=== PATIENT | female | born 1985 | race Native Hawaiian/Other Pacific Islander ===

== ENCOUNTER 2019-04-13 11:03 | Emergency (ER) | payer OTHER ==
[2019-04-13 11:17] VITALS: RESP 18; TEMP 98.2
[2019-04-13 12:12] LABS: Appearance,Urine Clear (Clear); Bilirubin,Urine Negative (Negative); Blood,Urine Negative (Negative); Color,Urine Yellow; Glucose,Urine (UA) Negative (Negative); Ketones,Urine Negative (Negative); Leukocyte Esterase,Urine Negative (Negative); Nitrite,Urine Negative (Negative); Protein,Urine Negative (Negative); Specific Gravity,Urine 1.018 (1.001-1.035); Urobilinogen,Urine <2.0 mg/dL (<2.0)
--- NOTE | 2019-04-13 12:43 | ED ---
Female Urogenital HPI - General Chief complaint: Abdominal Pain Stated complaint: Lower abd pain/pressure Time Seen by Provider: 04/13/19 11:25 Source: patient, RN notes reviewed, old records reviewed Mode of arrival: ambulatory Limitations: no limitations - History of Present Illness Initial comments: This is a 33-year-old female today. This patient resents today for evaluation regards to some pelvic pain right lower quadrant pelvic pain. Patient recently did pass a significant blood clot and she is having cramping like her normal periods. Patient not on control. Has no significant medical history takes no current medications. No recent travel history or sick contacts. No diarrheal issues no burning with urination. Patient is sexually active one partner. No vaginal discharge and no current bleeding. Patient is had some episodic headaches over the last 3 days but nothing significant. Mild nausea no vomiting. No fevers. Patient is eating and drinking appropriately, not anorexic MD Complaint: vaginal bleeding (One episode of vaginal bleeding past clot), pelvic pain (Right lower quadrant cramping) -: days(s) (4) Location: suprapubic, RLQ Radiation: non-radiating Severity: mild Severity scale (1-10): 2 Quality: cramping Consistency: intermittent Improves with: none Worsens with: none Patient : No Associated Symptoms: vaginal bleeding, abdominal pain - Related Data Sexually active: Yes Home Medications Medication Instructions Recorded Confirmed No Known Home Medications 04/13/19 04/13/19 Allergies Allergy/AdvReac Type Severity Reaction Status Date / Time No Known Allergies Allergy Verified 04/13/19 11:57 Review of Systems ROS Statement: Those systems with pertinent positive or pertinent negative responses have been documented in the HPI. ROS Other: All systems not noted in ROS Statement are negative. Past Medical History Past Medical History: Asthma, Rheumatoid Arthritis (RA) Additional Past Medical History / Comment(s): arthritis History of Any Multi-Drug Resistant Organisms: None Reported Past Surgical History: No Surgical Hx Reported Past Psychological History: Anxiety Smoking Status: Never smoker Past Alcohol Use History: Occasional Past Drug Use History: Marijuana General Exam Limitations: no limitations General appearance: alert, in no apparent distress Head exam: Present: atraumatic, normocephalic, normal inspection Eye exam: Present: normal appearance, PERRL, EOMI. Absent: scleral icterus, conjunctival injection, periorbital swelling ENT exam: Present: normal exam, mucous membranes moist Neck exam: Present: normal inspection. Absent: tenderness, meningismus, lymphadenopathy Respiratory exam: Present: normal lung sounds bilaterally. Absent: respiratory distress, wheezes, rales, rhonchi, stridor Cardiovascular Exam: Present: regular rate, normal rhythm, normal heart sounds. Absent: systolic murmur, diastolic murmur, rubs, gallop, clicks GI/Abdominal exam: Present: soft, tenderness (Right lower quadrant), normal bowel sounds. Absent: distended, guarding, rebound, rigid Extremities exam: Present: normal inspection, full ROM, normal capillary refill. Absent: tenderness, pedal edema, joint swelling, calf tenderness Back exam: Present: normal inspection Neurological exam: Present: alert, oriented X3, CN II-XII intact Psychiatric exam: Present: normal affect, normal mood Skin exam: Present: warm, dry, intact, normal color. Absent: rash Course Vital Signs 04/13/19 11:13 Temperature 98.2 F Pulse Rate 83 Respiratory 18 Rate Blood Pressure 127/82 O2 Sat by Pulse 99 Oximetry - Reevaluation(s) Reevaluation #1: 04/13/19 12:43 Medical record is reviewed Reevaluation #2: 04/13/19 12:43 Patient not informed of not being currently. Patient also states she took 3 at home test which were negative Reevaluation #3: 04/13/19 12:43 Patient not requiring pain management Medical Decision Making - Medical Decision Making He 3 female the ER for evaluation of right lower quadrant right suprapubic abdominal pain. Suprapubic pain. Pelvic pain. Patient has infrequent the pelvis likely ovarian cyst rupture. No fever or anorexia to more concern for appendicitis. Patient can be discharged home to return if symptoms worsen - Lab Data Lab Results 04/13/19 04/13/19 Range/Units 11:30 11:30 Urine Color Yellow Urine Appearance Clear (Clear) Urine pH 7.0 (5.0-8.0) Ur Specific [place] 1.018 (1.001-1.035) Urine Protein Negative (Negative) Urine Glucose (UA) Negative (Negative) Urine Ketones Negative (Negative) Urine Blood Negative (Negative) Urine Nitrite Negative (Negative) Urine Bilirubin Negative (Negative) Urine Urobilinogen <2.0 (<2.0) mg/dL Ur Leukocyte Esterase Negative (Negative) Urine HCG, Qual Not Detected (Not Detectd) - Radiology Data Radiology results: report reviewed (US pelvis does show some free fluid likely ovarian cyst rupture), image reviewed Disposition Clinical Impression: Ovarian cyst, Ovarian cyst rupture Disposition: HOME SELF-CARE Condition: Good Instructions (If sedation given, give patient instructions): Ruptured Ovarian Cyst (ED), Ovarian Cyst (ED) Is patient prescribed a controlled substance at d/c from ED?: No Referrals: None,Stated [Primary Care Provider] - 1-2 days
--- NOTE | 2019-04-13 13:49 | US ---
EXAMINATION TYPE: US transvaginal plus Dopplers DATE OF EXAM: 04/13/2019 COMPARISON: NONE CLINICAL HISTORY: 33-year-old female with Pelvic pain TECHNIQUE: Transvaginal (TV). Color Doppler and spectral waveform analysis of the ovarian arteries and veins. Date of LMP: 03/03/19 FINDINGS: EXAM MEASUREMENTS: Uterus: Anteverted measuring 5.3 x 2.8 x 3.8 cm Endometrial Stripe: 0.2 cm Right Ovary: 2.1 x 1.3 x 2.1 cm Left Ovary: unable to visualize 1. Uterus: Anteverted 2. Endometrium: appears wnl 3. Right Ovary: follicles noted 4. Left Ovary: Obscured by overlying bowel gas Spectral, color and waveform doppler imaging shows good arterial and venous flow within the right o vary; there is no evidence for ovarian torsion. 5. Bilateral Adnexa: Mild to moderate free fluid noted right adnexa 6. Posterior cul-de-sac: appears wnl IMPRESSION: 1. No sonographic evidence for right ovarian torsion. The left ovary could not be visualized for asse ssment. 2. Mild to moderate right adnexal free fluid adjacent to the ovary.
[2019-04-13 14:27] VITALS: BP 120/77; PULSE 75
== END 2019-04-13 14:27 | disposition home or self-care (01) ==
LOC: EC 11:03
DX: N83.209 Unspecified ovarian cyst, unspecified side (principal); R51 Headache; R11.0 Nausea; N93.9 Abnormal uterine and vaginal bleeding, unspecified
CPT/HCPCS: 76830; 81003; 81025; 87086; 93976; 99284

== ENCOUNTER 2019-09-23 22:46 | Emergency (ER) | payer OTHER ==
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
--- NOTE | 2019-09-23 23:32 | XR ---
EXAMINATION TYPE: XR cervical spine comp DATE OF EXAM: 09/23/2019 COMPARISON: NONE HISTORY: Neck pain TECHNIQUE: 5 views FINDINGS: There is some straightening of the vertebra and slight kyphotic curvature at C4-5 level. Po sterior elements are intact. The neural foramina are widely patent. Atlantoaxial facet joint is ar l. There are no cervical ribs. IMPRESSION: Mild straightening of the vertebra that could relate to spasm. No fracture seen.
[2019-09-24 00:07] VITALS: BP 135/86; PULSE 97; RESP 17; TEMP 97.7
== END 2019-09-24 00:06 | disposition home or self-care (01) ==
LOC: EC 22:46
DX: S16.1XXA Strain of muscle, fascia and tendon at neck level, initial encounter (principal); V49.9XXA Car occupant (driver) (passenger) injured in unspecified traffic accident, initial encounter; Y92.410 Unspecified street and highway as the place of occurrence of the external cause
CPT/HCPCS: 72050; 99284

== ENCOUNTER 2021-03-12 21:56 | Emergency (ER) | payer BC, OTHER ==
[2021-03-12 22:19] VITALS: TEMP 98.7
[2021-03-12] MEDS ORDERED: AMOXIC-POT CLAV 875-125MG 1 EACH TAB PO STA (22:55)
[2021-03-12] MEDS ORDERED: ACETAMINOPHEN TAB 500 MG TAB PO STA (22:55)
[2021-03-12] MEDS ORDERED: LORATADINE-PSEUDOEPH 5-120 MG 1 EACH TAB.ER.12H PO STA (22:55)
[2021-03-12] MEDS ORDERED: IBUPROFEN 800 MG TAB PO STA (22:55)
--- NOTE | 2021-03-12 23:04 | ED ---
Headache HPI - General Chief Complaint: Headache Stated Complaint: Head pain Time Seen by Provider: 03/12/21 22:29 Source: RN notes reviewed, old records reviewed Mode of arrival: ambulatory Limitations: no limitations - History of Present Illness Initial Comments: This is a 35-year-old female to the ER for evaluation. Patient presents today for evaluation regards to sinus sinus infection sinus headache. Patient denying any fevers with that she was forced to leave work secondary to her headache. Otherwise no complaints no travel history no sick contacts patient has no significant medical history. Does get recurrent sinus infections MD Complaint: headache, other (Sinus headache) -: days(s) Onset Description: gradual Location: frontal Severity: mild Severity scale (1-10): 2 Quality: aching, full Consistency: intermittent Improves With: nothing Worsens With: none Context: recent URI Associated Symptoms: other (none) Other Symptoms: other (none) Treatments Prior to Arrival: none - Related Data Previous Rx's Medication Instructions Recorded Ibuprofen [Motrin] 600 mg PO Q8HR PRN #20 tab 09/23/19 Amoxic-Pot Clav 875-125Mg 1 tab PO Q12HR #20 tablet 03/12/21 [Augmentin 875-125] Allergies Allergy/AdvReac Type Severity Reaction Status Date / Time No Known Allergies Allergy Verified 03/12/21 22:19 Review of Systems ROS Statement: Those systems with pertinent positive or pertinent negative responses have been documented in the HPI. ROS Other: All systems not noted in ROS Statement are negative. Past Medical History Past Medical History: Asthma, Rheumatoid Arthritis (RA) Additional Past Medical History / Comment(s): arthritis History of Any Multi-Drug Resistant Organisms: None Reported Past Surgical History: No Surgical Hx Reported Past Psychological History: Anxiety Smoking Status: Never smoker Past Alcohol Use History: Occasional Past Drug Use History: Marijuana General Exam Limitations: no limitations General appearance: alert, in no apparent distress Head exam: Present: atraumatic, normocephalic, normal inspection Eye exam: Present: normal appearance, PERRL, EOMI. Absent: scleral icterus, conjunctival injection, periorbital swelling ENT exam: Present: normal exam, mucous membranes moist Neck exam: Present: normal inspection. Absent: tenderness, meningismus, lymphadenopathy Respiratory exam: Present: normal lung sounds bilaterally. Absent: respiratory distress, wheezes, rales, rhonchi, stridor Cardiovascular Exam: Present: regular rate, normal rhythm, normal heart sounds. Absent: systolic murmur, diastolic murmur, rubs, gallop, clicks GI/Abdominal exam: Present: soft, normal bowel sounds. Absent: distended, tenderness, guarding, rebound, rigid Extremities exam: Present: normal inspection, full ROM, normal capillary refill. Absent: tenderness, pedal edema, joint swelling, calf tenderness Back exam: Present: normal inspection Neurological exam: Present: alert, oriented X3, CN II-XII intact Psychiatric exam: Present: normal affect, normal mood Skin exam: Present: warm, dry, intact, normal color. Absent: rash Course Vital Signs 03/12/21 03/12/21 22:15 23:23 Temperature 98.7 F 98.7 F Pulse Rate 85 84 Respiratory 17 18 Rate Blood Pressure 123/85 121/84 O2 Sat by Pulse 100 100 Oximetry - Reevaluation(s) Reevaluation #1: 03/13/21 Medical record is reviewed Reevaluation #2: 03/13/21 Patient informed of results, questions answered Patient asking for work note Medical Decision Making - Medical Decision Making 35 female to the ER for evaluation. Patient is here for treatment of sinus infection, sinus headache. Patient symptoms improved and can be discharged home Disposition Clinical Impression: Headache Disposition: HOME SELF-CARE Condition: Good Instructions (If sedation given, give patient instructions): Acute Headache (ED) Prescriptions: Amoxic-Pot Clav 875-125Mg [Augmentin 875-125] 1 tab PO Q12HR #20 tablet Is patient prescribed a controlled substance at d/c from ED?: No Referrals: Chilango Sandoval MD [Primary Care Provider] - 1-2 days
[2021-03-12 23:27] VITALS: BP 121/84; PULSE 84; RESP 18
== END 2021-03-12 23:23 | disposition home or self-care (01) ==
LOC: EC 21:56
DX: R51.9 Headache, unspecified (principal); J45.909 Unspecified asthma, uncomplicated; M06.9 Rheumatoid arthritis, unspecified; F41.9 Anxiety disorder, unspecified; F12.90 Cannabis use, unspecified, uncomplicated
CPT/HCPCS: 99283

== ENCOUNTER → 2021-12-10 | Outpatient (CLI) | payer BC ==
--- NOTE | 2021-12-10 09:19 | XR ---
EXAMINATION TYPE: XR finger RT DATE OF EXAM: 12/10/2021 COMPARISON: NONE HISTORY: Thumb pain after recent injury. TECHNIQUE: 3 views right thumb. FINDINGS: No acute displaced fracture is seen. Joint spaces are maintained in the right thumb. [place] ing soft tissue is unremarkable. IMPRESSION: As above.
== END | disposition home or self-care (01) ==
LOC: RADXRMAIN 08:08
PROVIDERS: ATTEND Family Medicine
DX: S69.91XA Unspecified injury of right wrist, hand and finger(s), initial encounter (principal); M79.644 Pain in right finger(s); X58.XXXA Exposure to other specified factors, initial encounter

== ENCOUNTER 2022-01-12 20:49 | Emergency (ER) | payer BC ==
[2022-01-12 21:24] VITALS: BP 122/78; PULSE 91; RESP 16; TEMP 98.1
--- NOTE | 2022-01-12 21:32 | ED ---
Upper Extremity HPI - General Chief Complaint: Extremity Injury, Upper Stated Complaint: R hand finger injury Time Seen by Provider: 01/12/22 21:27 Source: patient, RN notes reviewed Mode of arrival: ambulatory Limitations: no limitations - History of Present Illness Initial Comments: Patient states she was doing some gardening when her was cutting a tree branch. The treatment came down and struck her on the left thumb. Complaining of pain at the IP joint which radiates proximally when she moves the thumb. Pain is sharp. It by rest. No other injuries. No distal paresthesias. No headache, no fever or chills, no changes in vision or hearing, no sore throat or difficulty with speech, no neck pain, no chest pain or shortness of breath, no abdominal pain, no nausea or vomiting, no changes in urination or bowel movements, no numbness or tingling, no skin rashes or lesions. - Related Data Previous Rx's Medication Instructions Recorded Ibuprofen [Motrin] 600 mg PO Q8HR PRN #20 tab 09/23/19 Amoxic-Pot Clav 875-125Mg 1 tab PO Q12HR #20 tablet 03/12/21 [Augmentin 875-125] Allergies Allergy/AdvReac Type Severity Reaction Status Date / Time No Known Allergies Allergy Verified 03/12/21 22:19 Review of Systems ROS Statement: Those systems with pertinent positive or pertinent negative responses have been documented in the HPI. ROS Other: All systems not noted in ROS Statement are negative. Past Medical History Past Medical History: Asthma, Rheumatoid Arthritis (RA) Additional Past Medical History / Comment(s): arthritis History of Any Multi-Drug Resistant Organisms: None Reported Past Surgical History: No Surgical Hx Reported Past Psychological History: Anxiety Smoking Status: Never smoker Past Alcohol Use History: Occasional Past Drug Use History: Marijuana General Exam Limitations: no limitations General appearance: alert, in no apparent distress Head exam: Present: atraumatic, normocephalic, normal inspection Eye exam: Present: normal appearance, EOMI Neck exam: Present: normal inspection, full ROM Respiratory exam: Present: normal lung sounds bilaterally. Absent: respiratory distress, wheezes, rales, rhonchi, stridor Cardiovascular Exam: Present: regular rate, normal rhythm, normal heart sounds. Absent: systolic murmur, diastolic murmur, rubs, gallop, clicks Left Forearm Wrist exam: Present: normal inspection, full ROM. Absent: tenderness, swelling, abrasion, laceration, ecchymosis, deformity, crepitus, dislocation, erythema, tenderness over anatomical snuff box, pain with axial thumb loading Hand Wrist exam: Present: full ROM, tenderness (Patient has tenderness at the area of the IP joint. A lesser extent the MCP joint.). Absent: swelling, abras ion, deformity, crepitus, dislocation, erythema, amputation, nail avulsion, subungual hematoma Neuro motor exam: Present: wrist extension intact, thumb opposition intact, thum b IP flexion intact, thumb adduction intact, fingers 2-5 abduction intact Neurosensory exam: Present: radial nerve intact, ulnar nerve intact, median nerve intact Vascular: Present: normal capillary refill. Absent: vascular compromise, Pallo, pulse deficit radial art, pulse deficit ulnar art Back exam: Present: normal inspection Neurological exam: Present: alert, oriented X3, CN II-XII intact, normal gait. Absent: motor sensory deficit Psychiatric exam: Present: normal affect, normal mood Skin exam: Present: warm, dry, intact, normal color. Absent: rash Course Vital Signs 01/12/22 21:21 Temperature 98.1 F Pulse Rate 91 Respiratory 16 Rate Blood Pressure 122/78 O2 Sat by Pulse 98 Oximetry Medical Decision Making - Medical Decision Making Isolated soft tissue injury left thumb. Fracture possible. More likely contusion. Plan Fang is negative for any acute fracture. We'll treat conservatively with splinting, anti-inflammatory medication and Rice therapy. Patient 1 about the possibility of occult fracture or tendinitis/ligament injury. All questions answered. Patient voiced understanding. Patient was told to return to the ER for any signs or symptoms worsen. Told to return immediately if any other problems arise. All questions answered. Treatment plan discussed. Patient in agreement Every effort has been made to ensure accuracy of this dictation. However, due to the limitations of electronic medical records and dictation devices, errors in charting still occur. Automat Watcher Dr. Molina - Radiology Data Radiology results: report reviewed, image reviewed Disposition Clinical Impression: Sprain of hand, thumb, right Disposition: HOME SELF-CARE Condition: Good Instructions (If sedation given, give patient instructions): Hand Sprain (ED) Additional Instructions: Apply ice 20 minutes on and off to the affected area. Finger splint as tolerated. Follow-up with orthopedics if pain does not get better over the next for 5 days. Take [id number] acetaminophen and/or ibuprofen for pain control. Follow-up with your regular physician as directed. Return to the ER immediately if any symptoms worsen, new symptoms arise, or any other problems develop. Is patient prescribed a controlled substance at d/c from ED?: No Referrals: Shekhar Rodriguez DO [Doctor of Osteopathic Medicine] - 01/19/22 Time of Disposition: 22:04
--- NOTE | 2022-01-12 21:59 | XR ---
EXAMINATION TYPE: XR hand complete RT DATE OF EXAM: 01/12/2022 9:44 PM INDICATION: Patient age:Female; 36 years old; Reason for study: Thumb injury/pain radiates to the first MCP joint; COMPARISON: None TECHNIQUE: 3 views of the right hand were obtained. FINDINGS: Normal alignment of the visualized joints. No acute osseous pathology is identified. No e vidence of soft tissue swelling. IMPRESSION: No acute osseous pathology.
== END 2022-01-12 22:40 | disposition home or self-care (01) ==
LOC: EC 20:49
DX: S63.601A Unspecified sprain of right thumb, initial encounter (principal); J45.909 Unspecified asthma, uncomplicated; W26.0XXA Contact with knife, initial encounter